=== PATIENT | male | born 1970 | race Caucasian/White ===

== ENCOUNTER 2017-10-26 13:36 | Emergency (ER) | payer SELFPAY ==
[2017-10-26 13:57] VITALS: BP 216/112; TEMP 97.4; O2SAT 97
--- NOTE | 2017-10-26 15:00 | ED.PDOC ---
History of Present Illness - General Chief Complaint: Lower Extremity Injury Stated Complaint: difficulty ambulating Time Seen by Provider: 10/26/17 13:40 Source: patient, RN notes reviewed, EMS notes reviewed Additional Information: Pt states he transiently had difficulty walking. 911 was called because he was having a hard time keeping his pants up and a neighbor said his pants had fallen. When Police and EMS arrived, Police supposedly told patient that if he went to hospital then he could get a ride home from police after discharge. I told patient that given his history of elevated BP this may be a mini-stroke. He told me "Doc I am not interested in treatment". He said he has tried to treat his elevated BP in the past but he was not interested in continuing treatment. Patient is able to ambulate currently. I suggested he take a full aspirin (325 mg daily) at home. He refused further evaluation and management. - History of Present Illness Allergies/Adverse Reactions: Allergies Erythromycin Allergy (Verified 10/26/17 14:00) Past Medical History (General) - Patient Medical History Hx Hypertension: Yes Surgical History: other Family Medical History - Family History Mother Family History: Unknown Physical Exam - Physical Exam General Appearance: Obese Eyes, Ears, Nose, Throat: PERRL/EOMI Neck: non-tender Cardiovascular/Respiratory: regular rate, rhythm, no respiratory distress Thigh/Hip: normal inspection Leg: normal inspection Knee: normal inspection Ankle: normal inspection Foot: normal inspection Neuro/Tendon: normal sensation, normal motor functions Mental Status: alert, oriented x 3 Skin: normal color Progress - Progress Progress: 10/26/17 15:05 Patient's symptoms may be due to a TIA. I tried to discuss this with patient and he said he wasn't interested in getting treated for this. He said he would be "fine with a stroke someday", stating he has been "out of work" for a while. He has no SI but he does admit to poor motivation to take care of himself. 10/26/17 15:07 Pt signed an AMA form. Departure - Departure Clinical Impression: Transient left leg weakness, Uncontrolled hypertension Time of Disposition: 15:15 Disposition: Left Against Medical Advice Condition: Poor Departure Forms: ED Discharge - Pt. Copy, Patient Portal Self Enrollment Instructions: High Blood Pressure Additional Instructions: I recommend you follow-up with a primary care provider and get your blood pressure under control. In addition to getting your blood pressure under control, taking an Aspirin 325 mg daily may help to prevent a stroke in the future.
== END 2017-10-26 15:21 | disposition left against medical advice (07) ==
LOC: ER 13:36
DX: M62.81 Muscle weakness (generalized) (principal); I10 Essential (primary) hypertension